=== PATIENT | female | born 1955 | race Caucasian/White ===

== ENCOUNTER 2020-04-18 23:07 | Inpatient (IN) | payer MEDICAID, OTHER ==
[~2020-04-18] VITALS: Ht 152.4 cm; Wt 41.8 kg
[2020-04-18] MEDS ORDERED: 0.9% SODIUM CHLORIDE 10 ML SYRINGE IVP PRN (23:30)
[2020-04-18] MEDS ORDERED: MELA3TAB82 PO (23:42)
[2020-04-18] MEDS ORDERED: DOCU250C16 PO (23:42)
[2020-04-18] MEDS ORDERED: CITA10TA99 PO (23:42)
[2020-04-18] MEDS ORDERED: ARIP5TAB8 PO (23:42)
[2020-04-18] MEDS ORDERED: QUET100T PO (23:42)
[2020-04-18] MEDS ORDERED: TRAZ150T79 PO (23:42)
[2020-04-18] MEDS ORDERED: POLY119P17 PO (23:42)
[2020-04-18] MEDS ORDERED: SENN8.8S6 PO (23:42)
[2020-04-18] MEDS ORDERED: ASCO500C18 PO (23:42)
[2020-04-18] MEDS ORDERED: QUET200T PO (23:42)
[2020-04-18] MEDS ORDERED: SIMV5TAB58 PO (23:42)
[2020-04-18] MEDS ORDERED: CHOL100018 PO (23:42)
[2020-04-18 23:51] LABS: ABG A-A DIFF O2 582.3 mmHg (10-20.0); ABG CARBOXYHEMOGLOBIN 0.3 % (0.0-1.5); ABG HCO3 24.5 mmol/L (22.0-26.0); ABG METHEMOGLOBIN 0.1 % (0.0-1.5); ABG OXYGEN CONTENT 17.8 mL/dL (15.0-23.0); ABG OXYGEN SATURATION 94.7 % (95.0-98.0); ABG OXYHEMOGLOBIN 94.3 % (94.0-100.0); ABG PCO2 53 mmHg (35-45); ABG PH 7.325 (7.35-7.450); ABG TOTAL HEMOGLOBIN 13.4 G/dL (12.0-18.0); PO2, ARTERIAL BG 78.1 mmHg (79.0-87.0); SOURCE, BLOOD GAS ARTERIAL; TEMPERATURE, FAHRENHEIT, BG 98.5 FAHREN (96.0-98.6)
[2020-04-18 23:52] LABS: O2 DEVICE,BLOOD GAS BIPAP (ROOM AIR); SITE, BLOOD GAS RT RADIAL
[2020-04-18 23:57] LABS: BASOPHILS % (AUTO) 0.5 % (0.0-2.0); EOSINOPHILS % (AUTO) 0.1 % (1.0-6.0); HEMATOCRIT 38.8 % (36-46); HEMOGLOBIN 12.7 g/dL (12.0-16.0); LYMPHOCYTES # (AUTO) 0.4 K/uL (1.0-4.8); LYMPHOCYTES % (AUTO) 14.5 % (22.0-44.0); MEAN CORPUSCULAR HEMOGLOBIN 29.3 pg (26.0-34.0); MEAN CORPUSCULAR HGB CONC 32.8 G/dL (31.0-37.0); MEAN CORPUSCULAR VOLUME 89 fL (80-100); MONOCYTES # (AUTO) 0.3 K/uL (0.1-1.0); MONOCYTES % (AUTO) 9.4 % (2.0-9.0); NEUTROPHILS # (AUTO) 2.2 K/uL (1.8-7.7); NEUTROPHILS % (AUTO) 75.5 % (40.0-70.0); PLATELET COUNT (AUTO) 544 K/uL (150-450); RED BLOOD CELL COUNT(AUTO) 4.34 MIL/uL (4.00-5.20); RED CELL DISTRIBUTION WIDTH 13.4 % (11.5-14.5)
[2020-04-19 00:15] LABS: ANION GAP 5 mmol/L (8-16); CALCIUM, TOTAL 9.7 mg/dL (8.8-10.5); CARBON DIOXIDE 30 mmol/L (22-29); CHLORIDE 103 mmol/L (98-107); CREATININE 0.77 mg/dL (0.60-1.30); GLOMERULAR FILTR. RATE CALC > 60 mL/min (>60); GLUCOSE,RANDOM 147 mg/dL (70-110); POTASSIUM 3.9 mmol/L (3.5-5.1); SODIUM SERUM 138 mmol/L (136-145); UREA NITROGEN, BLOOD 26 mg/dL (7-18)
[2020-04-19 00:17] LABS: D-DIMER 11.58 mg/L FEU (0.00-0.50); PROTHROMBIN TIME 10.8 SEC (9.4-11.6)
[2020-04-19 00:35] LABS: LACTIC ACID 2.5 mmol/L (0.4-2.0)
[2020-04-19 00:39] LABS: ALANINE AMINOTRANSFERASE 20 U/L (12-78); ALBUMIN 3.2 g/dL (3.4-5.0); ALKALINE PHOSPHATASE 116 U/L (46-116); ASPARTATE AMINOTRANSFERASE 26 U/L (15-37); BILIRUBIN,TOTAL 0.1 mg/dL (0.1-1.0); CREATINE KINASE, TOTAL ONLY 151 U/L (26-192); TOTAL PROTEIN, SERUM 8.2 g/dL (6.4-8.2)
[2020-04-19 00:43] LABS: B-TYPE NATRIURETIC PEPTIDE 24 pg/mL (0-100)
[2020-04-19] MEDS ORDERED: SODIUM CHLORIDE 0.9% 1,000 ML IV ONE ×3 (00:45→04:15)
[2020-04-19] MEDS ORDERED: AZITHROMYCIN 500 MG/NS 250 ML IV ONE (00:45)
[2020-04-19] MEDS ORDERED: CefTRIAXone 1 GM/DEXTROSE 50 ML IV ONE (00:45)
[2020-04-19 01:00] LABS: APPEARANCE,URINE CLEAR (CLEAR); BILIRUBIN,URINE NEGATIVE (NEGATIVE); GLUCOSE, URINE (UA) NEGATIVE (NEGATIVE); KETONES,URINE NEGATIVE (NEGATIVE); LEUKOCYTE ESTERASE ,URINE NEGATIVE (NEGATIVE); NITRATE,URINE NEGATIVE (NEGATIVE); OCCULT BLOOD,URINE NEGATIVE (NEGATIVE); PH,URINE 5.5 (5.0-8.0); PROTEIN,URINE TRACE (NEGATIVE); UROBILINOGEN,URINE 0.2 mg/dL (<=1.0)
[2020-04-19] MEDS ORDERED: IOVERSOL 350 MG/ML 100 ML VIAL ONE (01:38)
[2020-04-19] MEDS ORDERED: SODIUM CHLORIDE 0.9% 100 ML ONE (01:38)
[2020-04-19] MEDS ORDERED: HEPARIN SODIUM 25000 UNITS/D5W 250 ML IV PRN (01:56)
[2020-04-19] MEDS ORDERED: HEPARIN SODIUM,PORCINE 5,000 UNITS/ML VIAL IVP PRN ×2 (02:00)
[2020-04-19] MEDS ORDERED: LORazepam 2 MG/ML VIAL IVP ONE (02:00)
[2020-04-19] MEDS ORDERED: ONDANSETRON HCL 4 MG/2 ML VIAL IVP PRN (02:00)
[2020-04-19] MEDS ORDERED: ACETAMINOPHEN 325 MG TABLET PO PRN ×2 (02:00→07:45)
[2020-04-19 02:55] LABS: C-REACTIVE PROTEIN QUANT 1.66 mg/dL (0.00-0.30); FERRITIN 253 ng/mL (8-252); LACTATE DEHYDROGENASE 368 U/L (81-234)
[2020-04-19 03:30] LABS: INR 1.1 (0.9-1.1); PROTHROMBIN TIME 11.2 SEC (9.4-11.6)
[2020-04-19 04:51] VITALS: BP 141/81
[2020-04-19 07:35] VITALS: BP 145/89
[2020-04-19] MEDS ORDERED: BISACODYL 10 MG RECTAL RECTAL SUPPOSITORY PR PRN (07:45)
[2020-04-19] MEDS ORDERED: IPRATROPIUM BROMIDE HFA 17 MCG/PUFF 12.9 GM INHALER IH PRN (07:45)
[2020-04-19] MEDS ORDERED: MAGNESIUM HYDROXIDE SUSPENSION 30 ML UDCUP PO PRN (07:45)
[2020-04-19] MEDS ORDERED: ALBUTEROL SULFATE HFA 90 MCG/PUFF 8 GM INHALER IH PRN (07:45)
[2020-04-19] MEDS ORDERED: HYDROCODONE/ACETAMINOPHEN 5-325 MG TABLET PO PRN (07:45)
[2020-04-19] MEDS ORDERED: ZOLPIDEM TARTRATE 5 MG TABLET PO PRN (07:45)
[2020-04-19] MEDS ORDERED: BUDESONIDE 180 MCG/INH INHALER [120] IH SCH (09:00)
[2020-04-19] MEDS: PANTOPRAZOLE SODIUM 40 MG DR TABLET PO SCH (09:00)
[2020-04-19] MEDS: DOCUSATE SODIUM 100 MG CAPSULE PO SCH ×2 (09:00→21:00)
[2020-04-19] MEDS: CHOLECALCIFEROL (VIT D3) 1,000 UNITS [25 MCG] TABLET PO SCH (09:00)
[2020-04-19] MEDS: QUEtiapine FUMARATE 100 MG TABLET PO SCH ×2 (09:00→21:00)
[2020-04-19] MEDS: MethylPREDNISolone SOD SUCC 125 MG/2 ML VIAL IVP SCH ×2 (09:05→15:11)
[2020-04-19] MEDS: PIPERACILLIN/TAZO 3.375 GM/D5W 50 ML IV SCH ×3 (09:06→22:50)
[2020-04-19] MEDS ORDERED: SODIUM CHLORIDE 0.9% 500 ML IV ONE (09:19)
[2020-04-19] MEDS: ARIPiprazole 5 MG TABLET PO SCH (10:00)
[2020-04-19 10:19] LABS: ABG A-A DIFF O2 364.1 mmHg (10-20.0); ABG CARBOXYHEMOGLOBIN 0.2 % (0.0-1.5); ABG HCO3 19.8 mmol/L (22.0-26.0); ABG METHEMOGLOBIN 0.3 % (0.0-1.5); ABG OXYGEN CONTENT 18.3 mL/dL (15.0-23.0); ABG OXYGEN SATURATION 99.6 % (95.0-98.0); ABG OXYHEMOGLOBIN 99.1 % (94.0-100.0); ABG PCO2 61 mmHg (35-45); ABG TOTAL HEMOGLOBIN 12.6 G/dL (12.0-18.0); PO2, ARTERIAL BG 286.7 mmHg (79.0-87.0); SOURCE, BLOOD GAS ARTERIAL; TEMPERATURE, FAHRENHEIT, BG 99.2 FAHREN (96.0-98.6)
[2020-04-19 10:23] LABS: ABG PH 7.194 (7.35-7.450); SITE, BLOOD GAS RT RADIAL
[2020-04-19 10:24] LABS: INSPIRATORY TIME, BG 1 SEC; O2 DEVICE,BLOOD GAS BIPAP (ROOM AIR)
[2020-04-19 11:14] VITALS: BP 120/68
[2020-04-19 12:00] VITALS: BP 159/77
[2020-04-19] MEDS ORDERED: SIMV-259 PO (12:49)
[2020-04-19] MEDS ORDERED: SENN-277 PO (12:49)
[2020-04-19] MEDS: ALBUTEROL SULFATE 2.5 MG/0.5 ML NEB SOLUTION NEB SCH ×2 (13:00→20:07)
[2020-04-19] MEDS: IPRATROPIUM BROMIDE 0.5 MG/2.5 ML NEB SOLUTION NEB SCH ×2 (13:00→20:07)
[2020-04-19 15:01] LABS: ABG BASE EXCESS -3.3 mmol/L (-2.0-3.0); ABG CARBOXYHEMOGLOBIN 0.8 % (0.0-1.5); ABG HCO3 21.5 mmol/L (22.0-26.0); ABG METHEMOGLOBIN 0.3 % (0.0-1.5); ABG OXYGEN CONTENT 18.4 mL/dL (15.0-23.0); ABG OXYHEMOGLOBIN 96.9 % (94.0-100.0); ABG PCO2 49 mmHg (35-45); ABG PH 7.297 (7.35-7.450); ABG TOTAL HEMOGLOBIN 13.4 G/dL (12.0-18.0); PO2, ARTERIAL BG 99.2 mmHg (79.0-87.0); SITE, BLOOD GAS RT RADIAL; SOURCE, BLOOD GAS ARTERIAL; TEMPERATURE, FAHRENHEIT, BG 98.3 FAHREN (96.0-98.6)
[2020-04-19 15:02] LABS: O2 DEVICE,BLOOD GAS HI FL CANNULA (ROOM AIR)
[2020-04-19] MEDS: MORPHINE SULFATE 2 MG/ML SYRINGE IVP PRN (15:43)
[2020-04-19 16:00] VITALS: BP 173/79
[2020-04-19] MEDS ORDERED: ALBUTEROL SULFATE 2.5 MG/0.5 ML NEB SOLUTION NEB PRN (19:00)
[2020-04-19] MEDS ORDERED: IPRATROPIUM BROMIDE 0.5 MG/2.5 ML NEB SOLUTION NEB PRN (19:00)
[2020-04-19 20:00] VITALS: BP 153/72
[2020-04-19] MEDS ORDERED: ZOLPIDEM TARTRATE 10 MG TABLET PO PRN (20:59)
[2020-04-19] MEDS: TraZODone HCL 150 MG TABLET PO SCH (21:00)
[2020-04-20] VITALS: BP 154/68
[2020-04-20] MEDS: MethylPREDNISolone SOD SUCC 125 MG/2 ML VIAL IVP SCH ×3 (00:50→16:35)
[2020-04-20] MEDS: MORPHINE SULFATE 2 MG/ML SYRINGE IVP PRN ×4 (01:40→20:32)
[2020-04-20] MEDS: IPRATROPIUM BROMIDE 0.5 MG/2.5 ML NEB SOLUTION NEB SCH ×4 (03:10→20:37)
[2020-04-20] MEDS: ALBUTEROL SULFATE 2.5 MG/0.5 ML NEB SOLUTION NEB SCH ×4 (03:10→20:37)
[2020-04-20 04:00] VITALS: BP 158/66
[2020-04-20] MEDS: PIPERACILLIN/TAZO 3.375 GM/D5W 50 ML IV SCH ×4 (04:27→20:34)
[2020-04-20 05:47] LABS: BASOPHILS % (AUTO) 0.1 % (0.0-2.0); EOSINOPHILS % (AUTO) 0 % (1.0-6.0); HEMATOCRIT 37.1 % (36-46); HEMOGLOBIN 11.9 g/dL (12.0-16.0); LYMPHOCYTES # (AUTO) 0.8 K/uL (1.0-4.8); LYMPHOCYTES % (AUTO) 8.9 % (22.0-44.0); MEAN CORPUSCULAR HEMOGLOBIN 29.3 pg (26.0-34.0); MEAN CORPUSCULAR HGB CONC 32.2 G/dL (31.0-37.0); MEAN CORPUSCULAR VOLUME 91 fL (80-100); MONOCYTES # (AUTO) 0.7 K/uL (0.1-1.0); MONOCYTES % (AUTO) 7.6 % (2.0-9.0); NEUTROPHILS # (AUTO) 7.7 K/uL (1.8-7.7); NEUTROPHILS % (AUTO) 83.4 % (40.0-70.0); PLATELET COUNT (AUTO) 482 K/uL (150-450); RED BLOOD CELL COUNT(AUTO) 4.06 MIL/uL (4.00-5.20); RED CELL DISTRIBUTION WIDTH 13.4 % (11.5-14.5)
[2020-04-20 06:04] LABS: D-DIMER 7.32 mg/L FEU (0.00-0.50)
[2020-04-20 06:09] LABS: ALANINE AMINOTRANSFERASE 24 U/L (12-78); ALBUMIN 2.6 g/dL (3.4-5.0); ALKALINE PHOSPHATASE 89 U/L (46-116); ANION GAP 7 mmol/L (8-16); ASPARTATE AMINOTRANSFERASE 33 U/L (15-37); BILIRUBIN,TOTAL 0.2 mg/dL (0.1-1.0); CALCIUM, TOTAL 9.6 mg/dL (8.8-10.5); CARBON DIOXIDE 30 mmol/L (22-29); CHLORIDE 108 mmol/L (98-107); CREATININE 0.66 mg/dL (0.60-1.30); FERRITIN 203 ng/mL (8-252); GLOMERULAR FILTR. RATE CALC > 60 mL/min (>60); GLUCOSE,RANDOM 175 mg/dL (70-110); LACTATE DEHYDROGENASE 292 U/L (81-234); POTASSIUM 4.1 mmol/L (3.5-5.1); SODIUM SERUM 145 mmol/L (136-145); TOTAL PROTEIN, SERUM 7.6 g/dL (6.4-8.2); UREA NITROGEN, BLOOD 26 mg/dL (7-18)
[2020-04-20 06:36] LABS: C-REACTIVE PROTEIN QUANT 30.88 mg/dL (0.00-0.30)
[2020-04-20 08:00] VITALS: BP 176/103
[2020-04-20] MEDS: CHOLECALCIFEROL (VIT D3) 1,000 UNITS [25 MCG] TABLET PO SCH (09:00)
[2020-04-20] MEDS: PANTOPRAZOLE SODIUM 40 MG DR TABLET PO SCH (09:00)
[2020-04-20] MEDS: DOCUSATE SODIUM 100 MG CAPSULE PO SCH ×2 (09:00→20:22)
[2020-04-20] MEDS: ARIPiprazole 5 MG TABLET PO SCH (09:00)
[2020-04-20] MEDS: QUEtiapine FUMARATE 100 MG TABLET PO SCH ×2 (09:00→20:22)
[2020-04-20] MEDS ORDERED: TRAZ150 PO (10:38)
[2020-04-20] MEDS ORDERED: DOCU-342 PO (10:38)
[2020-04-20] MEDS ORDERED: ASCO500 PO (10:38)
[2020-04-20] MEDS ORDERED: POLY17PO47 PO (10:38)
[2020-04-20 12:00] VITALS: BP 145/65
[2020-04-20 16:00] VITALS: BP 161/90
[2020-04-20 17:04] LABS: ABG A-A DIFF O2 587.1 mmHg (10-20.0); ABG CARBOXYHEMOGLOBIN 0.4 % (0.0-1.5); ABG HCO3 22.6 mmol/L (22.0-26.0); ABG METHEMOGLOBIN 0.3 % (0.0-1.5); ABG OXYGEN CONTENT 16.2 mL/dL (15.0-23.0); ABG OXYGEN SATURATION 89.2 % (95.0-98.0); ABG OXYHEMOGLOBIN 88.6 % (94.0-100.0); ABG PCO2 64 mmHg (35-45); ABG PH 7.239 (7.35-7.450); PO2, ARTERIAL BG 60.3 mmHg (79.0-87.0); SOURCE, BLOOD GAS ARTERIAL
[2020-04-20 17:05] LABS: SITE, BLOOD GAS RT BRACHIAL
[2020-04-20 17:06] LABS: O2 DEVICE,BLOOD GAS HI FL CANNULA (ROOM AIR)
[2020-04-20 20:00] VITALS: BP 109/57
[2020-04-20] MEDS: TraZODone HCL 150 MG TABLET PO SCH (20:22)
[2020-04-20] MEDS: ONDANSETRON HCL 4 MG/2 ML VIAL IVP PRN (20:33)
[2020-04-21] VITALS: BP 101/41
[2020-04-21] MEDS: MethylPREDNISolone SOD SUCC 125 MG/2 ML VIAL IVP SCH ×2 (00:29→08:08)
[2020-04-21] MEDS: PIPERACILLIN/TAZO 3.375 GM/D5W 50 ML IV SCH ×2 (02:38→08:08)
[2020-04-21] MEDS: ONDANSETRON HCL 4 MG/2 ML VIAL IVP PRN (02:39)
[2020-04-21] MEDS: MORPHINE SULFATE 2 MG/ML SYRINGE IVP PRN ×2 (02:39→08:09)
[2020-04-21] MEDS: ALBUTEROL SULFATE 2.5 MG/0.5 ML NEB SOLUTION NEB SCH (02:59)
[2020-04-21] MEDS: IPRATROPIUM BROMIDE 0.5 MG/2.5 ML NEB SOLUTION NEB SCH (02:59)
[2020-04-21] MEDS ORDERED: HEPARIN SODIUM 25000 UNITS/D5W 250 ML IV PRN (03:16)
[2020-04-21] MEDS ORDERED: HEPARIN SODIUM,PORCINE 5,000 UNITS/ML VIAL IVP PRN ×2 (03:30)
[2020-04-21 04:00] VITALS: BP 144/71
[2020-04-21 05:47] LABS: D-DIMER 10.09 mg/L FEU (0.00-0.50)
[2020-04-21 05:58] LABS: FERRITIN 237 ng/mL (8-252); LACTATE DEHYDROGENASE 284 U/L (81-234)
[2020-04-21 06:18] LABS: C-REACTIVE PROTEIN QUANT 31.04 mg/dL (0.00-0.30)
[2020-04-21 06:36] LABS: BASOPHILS % (AUTO) 0.2 % (0.0-2.0); EOSINOPHILS % (AUTO) 0 % (1.0-6.0); HEMOGLOBIN 12.2 g/dL (12.0-16.0); LYMPHOCYTES # (AUTO) 0.3 K/uL (1.0-4.8); MEAN CORPUSCULAR HEMOGLOBIN 29.5 pg (26.0-34.0); MEAN CORPUSCULAR HGB CONC 32.2 G/dL (31.0-37.0); MEAN CORPUSCULAR VOLUME 92 fL (80-100); MONOCYTES # (AUTO) 0.5 K/uL (0.1-1.0); MONOCYTES % (AUTO) 3.3 % (2.0-9.0); NEUTROPHILS # (AUTO) 15.1 K/uL (1.8-7.7); PLATELET COUNT (AUTO) 540 K/uL (150-450); RED BLOOD CELL COUNT(AUTO) 4.15 MIL/uL (4.00-5.20); RED CELL DISTRIBUTION WIDTH 13.6 % (11.5-14.5)
[2020-04-21 07:02] LABS: NEUTROPHILS % (AUTO) 94.5 % (40.0-70.0)
[2020-04-21 07:14] LABS: PROTHROMBIN TIME 10.7 SEC (9.4-11.6)
[2020-04-21 07:43] LABS: ANION GAP 10 mmol/L (8-16); CALCIUM, TOTAL 9.7 mg/dL (8.8-10.5); CARBON DIOXIDE 28 mmol/L (22-29); CHLORIDE 111 mmol/L (98-107); GLOMERULAR FILTR. RATE CALC > 60 mL/min (>60); GLUCOSE,RANDOM 154 mg/dL (70-110); POTASSIUM 3.9 mmol/L (3.5-5.1); SODIUM SERUM 149 mmol/L (136-145); UREA NITROGEN, BLOOD 40 mg/dL (7-18)
[2020-04-21 08:00] VITALS: BP 147/75
[2020-04-21] MEDS: DOCUSATE SODIUM 100 MG CAPSULE PO SCH (08:03)
[2020-04-21] MEDS: PANTOPRAZOLE SODIUM 40 MG DR TABLET PO SCH (08:03)
[2020-04-21] MEDS: QUEtiapine FUMARATE 100 MG TABLET PO SCH (08:03)
[2020-04-21] MEDS: ARIPiprazole 5 MG TABLET PO SCH (08:03)
[2020-04-21] MEDS: CHOLECALCIFEROL (VIT D3) 1,000 UNITS [25 MCG] TABLET PO SCH (08:04)
[2020-04-21] MEDS: MORPHINE SULFATE 100 MG/NS/PF 100 ML IV PRN ×5 (10:05→13:51)
[2020-04-21 10:50] VITALS: BP 150/75
[2020-04-21] MEDS: ACETAMINOPHEN 650 MG RECTAL SUPPOSITORY PR PRN ×2 (11:43→20:12)
[2020-04-21] MEDS ORDERED: SCOPOLAMINE HYDROBROMIDE 1 MG/72 HOUR PATCH TD SCH (16:00)
[2020-04-21 19:30] VITALS: BP 116/57
[2020-04-21 23:49] VITALS: BP 106/55
[2020-04-22] VITALS (7 sets, daily range): BP systolic 50–99; BP diastolic 31–54
[2020-04-22] MEDS: MORPHINE SULFATE 100 MG/NS/PF 100 ML IV PRN ×2 (01:12→19:07)
[2020-04-22] MEDS: ACETAMINOPHEN 650 MG RECTAL SUPPOSITORY PR PRN ×3 (01:15→22:42)
[2020-04-23] MEDS: ACETAMINOPHEN 650 MG RECTAL SUPPOSITORY PR PRN (07:03)
[2020-04-23] MEDS: MORPHINE SULFATE 100 MG/NS/PF 100 ML IV PRN (11:52)
== END 2020-04-23 18:45 | disposition expired | DRG 720 ==
LOC: EMS 23:07 → 5N 04-19 02:02 → ICU 04-19 10:10 → 6N 04-21 10:35
PROVIDERS: ADMIT Internal Medicine; ATTEND Internal Medicine
PROC: 5A09357 Assistance with Respiratory Ventilation, Less than 24 Consecutive Hours, Continuous Positive Airway Pressure (ICD-10-PCS; principal; 2020-04-19)
DX: A41.9 Sepsis, unspecified organism (principal); J96.01 Acute respiratory failure with hypoxia; J69.0 Pneumonitis due to inhalation of food and vomit; E43 Unspecified severe protein-calorie malnutrition; G80.9 Cerebral palsy, unspecified; E55.9 Vitamin D deficiency, unspecified; J44.9 Chronic obstructive pulmonary disease, unspecified; E78.5 Hyperlipidemia, unspecified; Z20.828 Contact with and (suspected) exposure to other viral communicable diseases; E87.2 Acidosis; J44.0 Chronic obstructive pulmonary disease with (acute) lower respiratory infection; E87.0 Hyperosmolality and hypernatremia; Z51.5 Encounter for palliative care; F32.9 Major depressive disorder, single episode, unspecified; M19.90 Unspecified osteoarthritis, unspecified site; R13.10 Dysphagia, unspecified
CPT/HCPCS: 36600; 71275; 82728; 82805; 83605; 83615; 83735; 84145; 85379; 86140; 87040; 87081; 92610; 93005; 94640; 94660; 99291; G0378; J0456; J0696; J1644; J2060; J2270; J2405; J2543; J2930; J3535; J7030; J7040; J7050; 36415-L1; 36415-TC; 71045-TC; 81003-TC; J7613; U0003-CS